=== PATIENT | male | born 1935 | race Caucasian/White ===

== ENCOUNTER 2021-01-03 08:50 | Day surgery (SDC) | payer MEDICARE ==
[~2021-01-03] VITALS: Ht 180.3 cm; Wt 76.8 kg
[~2021-01-03 08:50] MED LIST: AMIO200T53 PO; APIX5TAB PO; ASPI-630 PO; ATORVASTATIN CA80 MG PO; CALC0.25 PO; CEPH-264 PO; CHOL10003 PO; EZET10TA20 PO; FERR325T14 PO; GLYB5TAB3 PO; HYDROmorphone 2 MG/ML VIAL IVP PRN; IV RINGERS,LACTATED 1000ML 1,000 ML IV SCH; LEVO50TA5 PO; METF10007 PO; METO-269 PO; NITR0.4T22 SL; OXYC1TAB15 PO; PROCHLORPERAZINE 10 MG/2 ML VIAL. IVP PRN; SEVE800T8 PO; TEST200V3 IM; ceFAZolin 2GM PREMIX 2 GM/50 ML BAG IV ONE; fentaNYL PF VIAL 100 MCG/2 ML VIAL IVP PRN
[2021-01-03] MEDS ORDERED: LIDOCAINE 2% PF 5 ML VIAL. ONE (08:55)
[2021-01-03] MEDS ORDERED: DEXAMETHASONE SOD PHOS 4 MG/ML VIAL ONE (08:55)
[2021-01-03] MEDS ORDERED: PROPOFOL 10 MG/ML (20ML) VIAL. IV ONE (08:55)
[2021-01-03] MEDS ORDERED: ONDANSETRON PF 4 MG/2 ML VIAL. ONE (08:55)
[2021-01-03] MEDS ORDERED: BUPIVACAINE MPF 0.25% 30 ML VIAL. ONE (09:24)
[2021-01-03] MEDS ORDERED: OXYC1TAB15 PO (09:26)
--- NOTE | 2021-01-03 09:29 | DISCH ---
DISCHARGE INSTRUCTIONS Condition on Discharge Condition on Discharge: Stable Activity After Discharge Activity Instructions for Disc: Activity as tolerated, Avoid exertion Driving Instructions after Dis: Do not drive today Weight Bearing Status after Di: As tolerated Diet after Discharge Diet after Discharge: Renal Dialysis, Diabetic No Calorie Level Wound Incision Care Wound/Incision Care: Ice to area for comfort, Keep wound elevated, Do not ch kayleigh dressing Checks after Discharge Checks after discharge: Check blood press - daily, Check blood sugar, ac/hs, Check your Temp as needed Contacting the DR. after DC Call your doctor for: If your condition worsens Follow-Up Follow up with: 10 to 14 days Treatment/Equipment after DC Adaptive Equipment Issued: None PIETRO PETERS Jr. DO Jan 03, 2021 09:29
[2021-01-03] MEDS ORDERED: IV NORMAL SALINE 1000ML BAG 1,000 ML IV SCH (09:30)
[2021-01-03 09:32] VITALS: BP 139/63
[2021-01-03 10:02] LABS: CALCIUM 9.8 mg/dL (8.5-10.1); CREATININE 6.7 mg/dL (0.7-1.3); GFR 7.9; POTASSIUM 4.5 mmol/L (3.5-5.1)
[2021-01-03] MEDS ORDERED: fentaNYL PF VIAL 100 MCG/2 ML VIAL ONE ×3 (10:14→12:25)
[2021-01-03] MEDS ORDERED: ePHEDrine PF IN SALINE 50 MG/10 ML SYRINGE. IV ONE (10:59)
--- NOTE | 2021-01-03 11:49 | PDOC4 ---
OPERATIVE NOTE Date: Date: Jan 03, 2021 Pre-Op Diagnosis: Displaced fractures third and fourth metacarpals left hand Post-Op Diagnosis: Same Procedure Performed: ORIF left third and fourth metacarpals Surgeon: Nica Anesthesia Type: General Blood Loss: 10 cc Specimans Obtained: None Findings: See dictation Complications: None PIETRO PETERS Jr. DO Jan 03, 2021 11:49
[2021-01-03 11:53] VITALS: BP 136/62
[2021-01-03] MEDS ORDERED: MORPHINE SULFATE 2 MG/ML INJ. ONE ×2 (11:59→12:25)
[2021-01-03] MEDS: MORPHINE SULFATE 2 MG/ML INJ. IVP PRN ×4 (12:00→12:51)
--- NOTE | 2021-01-03 12:07 | OP ---
DATE OF SURGERY: 01/03/2021 PREOPERATIVE DIAGNOSIS: Displaced fracture third and fourth metacarpals, left hand. POSTOPERATIVE DIAGNOSIS: Displaced fracture third and fourth metacarpals, left hand. PROCEDURE: ORIF of left fourth and fifth metacarpals, left hand. SURGEON: Alonzo Yousif DO APPLICATION SUPPORT INTERN: Dev Chi MD ANESTHESIA: General. COMPLICATIONS: None. ESTIMATED BLOOD LOSS: 10 mL. DESCRIPTION OF PROCEDURE: The patient was taken to the operative suite, given a general anesthetic. The left upper extremity was then prepped and draped in a sterile fashion. After exsanguination, the tourniquet was placed just below his mid forearm. Then, after that, the incision was made on the more radial aspect of the third metacarpal and the most ulnar aspect of the fourth metacarpal. This was done very carefully to give much of a skin bridge as possible. This was taken through down to identify the tendinous structures. The first was the third metacarpal and after this, fracture was identified. It was noted to be rotated and significantly displaced. Following this, this was interposed soft tissue and a one small bone fragment was moved so that reduction could be undertaken. This was held in reduction with a clamp and then 2 screws were placed across in lag fashion. These were 2.3 mm screws. The more proximal aspect of these were overdrilled and then the distal was drilled 1.8. There was excellent purchase with 12 mm screws and this fixated this appropriately. Attention was then directed to the fourth metacarpal, which was again noted to be mildly reduced. Therefore, this was reduced and held with a clamp; however, due to the nature of the fracture and the obliquity of the fracture, there was no possibility of getting a screw to hold appropriately. Therefore, 2 K-wires were placed to hold this in appropriate position and orientation and noted to be stable and rotation of the fingers was noted to be intact and returned to normal. The wound was thoroughly irrigated. The wounds were then reapproximated in an interrupted fashion using 3-0 nylon. Sterile dressing was applied along with a volar splint and the tourniquet was removed. The patient was then taken from the operative bed to the postoperative bed, taken to the PACU in stable condition. HEATHER DR: Lupis TID: [id number]
[2021-01-03] MEDS: fentaNYL PF VIAL 100 MCG/2 ML VIAL IVP PRN ×3 (12:08→12:38)
[2021-01-03] MEDS ORDERED: HYDROcodone/APAP 5/325MG 1 TAB TABLET ONE (12:57)
[2021-01-03] MEDS ORDERED: oxyCODONE/APAP 5/325 1 TAB TABLET PO ONE (13:00)
== END 2021-01-03 13:45 | disposition home or self-care (01) ==
LOC: SURG 08:50
PROVIDERS: ATTEND Orthopaedic Surgery
DX: S62.303A Unspecified fracture of third metacarpal bone, left hand, initial encounter for closed fracture (principal); S62.305A Unspecified fracture of fourth metacarpal bone, left hand, initial encounter for closed fracture; I25.10 Atherosclerotic heart disease of native coronary artery without angina pectoris; E78.00 Pure hypercholesterolemia, unspecified; J44.9 Chronic obstructive pulmonary disease, unspecified; I12.0 Hypertensive chronic kidney disease with stage 5 chronic kidney disease or end stage renal disease; N18.6 End stage renal disease; E11.22 Type 2 diabetes mellitus with diabetic chronic kidney disease; E03.9 Hypothyroidism, unspecified; N40.0 Benign prostatic hyperplasia without lower urinary tract symptoms; M19.90 Unspecified osteoarthritis, unspecified site; F17.210 Nicotine dependence, cigarettes, uncomplicated; Z99.2 Dependence on renal dialysis; Z85.828 Personal history of other malignant neoplasm of skin; Z79.82 Long term (current) use of aspirin; Z79.84 Long term (current) use of oral hypoglycemic drugs; Z79.899 Other long term (current) drug therapy; Z98.890 Other specified postprocedural states; X58.XXXA Exposure to other specified factors, initial encounter; Y93.89 Activity, other specified; Y92.89 Other specified places as the place of occurrence of the external cause; Y99.8 Other external cause status
CPT/HCPCS: 26615; 36415; 80048; 82962; A4209; A4930; A6219; A6257; A6402; A6449; C1713; C1769; J0690; J1100; J2270; J2405; J2704; J3010; J3490; 76000